=== PATIENT | female | born 1940 | race Caucasian/White ===

== ENCOUNTER → 2017-05-04 | Outpatient (CLI) | payer MEDICARE, OTHER ==
[~2017-05-04] MED LIST: ASCO-96 PO; ASPI-621 PO; BIOT25005 PO; CALC1CAP8 PO; CHOL20002 PO; DEXL60CA2 PO; FLAX100016 PO; FLUT1DIS IH; GARL10002 PO; IPRA4AER INH; LACT1CAP35 PO; LOSA50TA6 PO; MOME13HF2 INH; OMEG1CAP23 PO; POTA10TA11 PO; SIMV20TA3 PO; TRIA1TAB3 PO; VITA400C43 PO
[2017-05-04 13:39] LABS: HEMOGLOBIN 12.2 g/dL (11.7-16.4); WHITE BLOOD COUNT 3.2 x10^3/uL (3.4-10)
== END | disposition home or self-care (01) ==
LOC: CFH 12:00
PROVIDERS: ATTEND Physical Medicine & Rehabilitation
DX: M79.661 Pain in right lower leg (principal); R60.0 Localized edema
CPT/HCPCS: 36415; 85025; 85651; 86140

== ENCOUNTER → 2017-06-08 | Outpatient (CLI) | payer MEDICARE, OTHER ==
[~2017-06-08] MED LIST changes: +APIX5TAB PO; +ASPI-191 PO; +ATOR-2 PO; +CEFD300C37 PO; +FLUT1DIS3 INH; +MELA3TAB2 PO; +METO1TAB18 PO; +METO50TA82 PO; +QUET25TA5 PO; +RIVA20TA PO
[2017-06-08 15:39] LABS: BLOOD UREA NITROGEN 13 mg/dL (7-18)
== END | disposition home or self-care (01) ==
LOC: CFH 13:06
PROVIDERS: ATTEND Internal Medicine Cardiovascular Disease
DX: I10 Essential (primary) hypertension (principal); I48.91 Unspecified atrial fibrillation
CPT/HCPCS: 36415; 80048

== ENCOUNTER 2017-06-22 07:55 | Day surgery (SDC) | payer MEDICARE, OTHER ==
[~2017-06-22] VITALS: Ht 167.6 cm; Wt 77.3 kg
[2017-06-22] MEDS ORDERED: SODIUM CHLORIDE 0.9% 500 ML IV PRN (08:12)
[2017-06-22 08:28] VITALS: BP 113/78
[2017-06-22] MEDS ORDERED: ATOR-2 PO (08:43)
[2017-06-22] MEDS ORDERED: METO50TA82 PO (08:43)
[2017-06-22] MEDS ORDERED: RIVA20TA PO (08:43)
[2017-06-22] MEDS ORDERED: QUET25TA5 PO (08:43)
[2017-06-22] MEDS ORDERED: TRAZ50TA18 PO (08:43)
[2017-06-22] MEDS ORDERED: POTA20TA14 PO (08:44)
[2017-06-22] MEDS ORDERED: PLEASE ENTER HEIGHT AND WEIGHT MC SCH (09:00)
[2017-06-22] MEDS ORDERED: PROPOFOL 10 MG/ML, 20ML ONE (10:42)
== END 2017-06-22 13:10 | disposition home or self-care (01) ==
LOC: CACL 07:55
PROVIDERS: ATTEND Internal Medicine Cardiovascular Disease
DX: I48.91 Unspecified atrial fibrillation (principal); Z79.82 Long term (current) use of aspirin; I10 Essential (primary) hypertension; J45.909 Unspecified asthma, uncomplicated
CPT/HCPCS: 92960; J2704

== ENCOUNTER 2017-10-24 11:03 | Observation (INO) | payer MEDICARE, OTHER ==
[~2017-10-24] VITALS: Ht 167.6 cm; Wt 86.3 kg
[~2017-10-24 11:03] MED LIST changes: +POTA20TA14 PO; +TRAZ50TA18 PO
[2017-10-24 11:49] LABS: BASOPHILS # (AUTO) 0.02 x10^3/uL (0-0.1); BASOPHILS % (AUTO) 0 % (0-1); EOSINOPHILS # (AUTO) 0.07 x10^3/uL (0-0.4); EOSINOPHILS % (AUTO) 1 % (1-7); LYMPHOCYTES # (AUTO) 0.91 x10^3/uL (1-3.4); LYMPHOCYTES % (AUTO) 19 % (22-44); MD NO; MEAN CORPUSCULAR HEMOGLOBIN 30.4 pg (27.0-34.8); MEAN CORPUSCULAR HGB CONC 33.2 g/dL (32.4-35.8); MEAN CORPUSCULAR VOLUME 91.5 fL (80-100); MEAN PLATELET VOLUME 9.8 fL (7.4-10.4); MONOCYTES # (AUTO) 0.53 x10^3/uL (0.2-0.8); MONOCYTES % (AUTO) 11 % (2-9); NEUTROPHILS # (AUTO) 3.36 x10^3/uL (1.8-6.8); NEUTROPHILS % (AUTO) 69 % (42-75); PLATELET COUNT 154 x10^3/uL (130-400); RED BLOOD COUNT 4.57 x10^6/uL (3.82-5.3); RED CELL DISTRIBUTION WIDTH 14.6 % (9.6-15.2)
[2017-10-24 11:55] LABS: INTERNATIONAL NORMALIZED RATIO 1.58 (0.93-1.1); PROTHROMBIN TIME 16.1 Seconds (9.6-11.5)
[2017-10-24 12:01] LABS: ALBUMIN 3.1 g/dL (3.4-5.0); ANION GAP 6 mmol/L (5-15); CALCIUM 8.5 mg/dL (8.5-10.1); CHLORIDE 107 mmol/L (98-107)
[2017-10-24 12:04] LABS: TROPONIN I < 0.015 ng/mL (0.000-0.045)
[2017-10-24] MEDS ORDERED: SODIUM CHLORIDE 0.9%, 500ML IVBOLUS ONE (12:30)
[2017-10-24] MEDS ORDERED: LOSA50TA6 PO (12:34)
[2017-10-24] MEDS ORDERED: MIRT15TA4 PO (12:34)
[2017-10-24] MEDS ORDERED: DEXL60CA2 PO (12:34)
[2017-10-24] MEDS ORDERED: SIMV5TAB5 PO (12:34)
[2017-10-24] MEDS ORDERED: RISP0.2518 PO (12:34)
[2017-10-24] MEDS ORDERED: PREG25CA PO (12:34)
[2017-10-24] MEDS ORDERED: HYDR12.58 PO (12:34)
[2017-10-24] MEDS ORDERED: METO25TA2 PO (12:34)
[2017-10-24] MEDS ORDERED: ACETAMINOPHEN 325 MG TABLET PO PRN (14:00)
[2017-10-24] MEDS ORDERED: ONDANSETRON ODT 4 MG PO PRN (14:00)
[2017-10-24] MEDS ORDERED: DOCUSATE 100 MG CAPSULE PO PRN (14:00)
[2017-10-24] MEDS ORDERED: TRAZODONE 50MG TABLET PO PRN (14:00)
[2017-10-24] MEDS ORDERED: BISACODYL 10 MG SUPP PR PRN (14:00)
[2017-10-24] MEDS ORDERED: HYDROcodone/APAP 5/325 TABLET PO PRN (14:00)
[2017-10-24] MEDS ORDERED: LABETALOL 5MG/ML, 20ML IVPush PRN (14:00)
[2017-10-24] MEDS ORDERED: ENALAPRILAT 1.25 MG/ML, 2ML IVPush PRN (14:00)
[2017-10-24 15:57] VITALS: BP 167/73
[2017-10-24 18:26] LABS: TROPONIN I < 0.015 ng/mL (0.000-0.045)
[2017-10-24 19:02] VITALS: BP 141/75
[2017-10-24] MEDS: POTASSIUM CHLORIDE 20 MEQ TAB.ER.PRT PO SCH (20:10)
[2017-10-24] MEDS: QUETIAPINE 25MG TABLET PO SCH (20:10)
[2017-10-24] MEDS ORDERED: ATORVASTATIN 80 MG TABLET PO SCH (21:00)
[2017-10-24 21:44] LABS: MICROSCOPIC INDICATED
[2017-10-24 21:45] LABS: CULTURE INDICATED? YES
[2017-10-25 02:14] VITALS: BP 143/70
[2017-10-25 05:52] LABS: ANION GAP 8 mmol/L (5-15); CALCIUM 8.8 mg/dL (8.5-10.1); CHLORIDE 109 mmol/L (98-107); CREATININE 0.99 mg/dL (0.55-1.02)
[2017-10-25 07:41] VITALS: BP 140/85
[2017-10-25] MEDS ORDERED: GADOBUTROL 10 MMOL/10 ML VIAL ONE (08:36)
[2017-10-25] MEDS ORDERED: RIVAROXABAN 20 MG TABLET PO SCH (09:00)
[2017-10-25] MEDS ORDERED: HYDROCHLOROTHIAZIDE 12.5 MG CAPSULE PO SCH (09:00)
[2017-10-25] MEDS ORDERED: DEXLANSOPRAZOLE 60 MG PO SCH (09:00)
[2017-10-25] MEDS ORDERED: MIRTAZAPINE 15 MG TABLET PO SCH (09:00)
[2017-10-25] MEDS ORDERED: (Fluticasone/Salmeterol** (Advair 250-50 Diskus**) 1 PUFF) INH SCH (09:00)
[2017-10-25] MEDS ORDERED: RISPERIDONE 0.25 MG PO SCH (09:00)
[2017-10-25] MEDS ORDERED: LOSARTAN 50MG TABLET PO SCH (09:00)
[2017-10-25] MEDS ORDERED: METOPROLOL SUCCINATE 25 MG TAB.ER.24H PO SCH (09:00)
[2017-10-25] MEDS ORDERED: PREGABALIN 25 MG CAPSULE PO SCH (09:00)
[2017-10-25] MEDS: QUETIAPINE 25MG TABLET PO SCH (09:19)
[2017-10-25] MEDS: POTASSIUM CHLORIDE 20 MEQ TAB.ER.PRT PO SCH (09:19)
[2017-10-25 14:05] VITALS: BP 129/82
[2017-10-25] MEDS ORDERED: METO25TA91 PO (17:26)
== END 2017-10-25 20:42 | disposition home or self-care (01) ==
LOC: ED 12:06 → INTOOBSV 12:27 → EDIP 12:27 → 5SO 15:41
PROVIDERS: ADMIT Family Medicine; ATTEND Family Medicine
DX: G45.9 Transient cerebral ischemic attack, unspecified (principal); E86.0 Dehydration; I12.9 Hypertensive chronic kidney disease with stage 1 through stage 4 chronic kidney disease, or unspecified chronic kidney disease; N18.9 Chronic kidney disease, unspecified; E44.0 Moderate protein-calorie malnutrition; J45.909 Unspecified asthma, uncomplicated; I48.92 Unspecified atrial flutter; I48.2 Chronic atrial fibrillation; K21.9 Gastro-esophageal reflux disease without esophagitis; I25.2 Old myocardial infarction; E78.5 Hyperlipidemia, unspecified; I25.10 Atherosclerotic heart disease of native coronary artery without angina pectoris; Z80.3 Family history of malignant neoplasm of breast; Z86.14 Personal history of Methicillin resistant Staphylococcus aureus infection; Z86.73 Personal history of transient ischemic attack (TIA), and cerebral infarction without residual deficits
CPT/HCPCS: 36415; 70450; 70546; 80048; 81001; 82040; 83735; 84134; 84484; 85025; 85610; 87086; 92523; 92610; 93005; 93306; 93880; 96360; 99285; A9585; G0378; G8978; G8979; G8980; J7040

== ENCOUNTER 2018-03-14 10:49 | Inpatient (IN) | payer MEDICARE, OTHER ==
[~2018-03-14] VITALS: Ht 165.1 cm; Wt 89.7 kg
[~2018-03-14 10:49] MED LIST changes: -CHOL20002 PO; +CHOL200052 PO; +HYDR12.58 PO; -LOSA50TA6 PO; +LOSA50TA7 PO; +METO25TA2 PO; +METO25TA91 PO; +MIRT15TA4 PO; +PREG25CA PO; +RISP0.2518 PO; +SIMV5TAB5 PO; +TRAZ-136 PO; -TRAZ50TA18 PO
[2018-03-14] MEDS ORDERED: NALOXONE 1 MG/ML, 2ML ONE (11:15)
[2018-03-14 11:18] LABS: BASOPHILS % (AUTO) 0 % (0-1); EOSINOPHILS # (AUTO) 0.01 x10^3/uL (0-0.4); EOSINOPHILS % (AUTO) 0 % (1-7); LYMPHOCYTES # (AUTO) 0.76 x10^3/uL (1-3.4); LYMPHOCYTES % (AUTO) 7 % (22-44); MD NO; MEAN CORPUSCULAR HEMOGLOBIN 31.1 pg (27.0-34.8); MEAN CORPUSCULAR HGB CONC 33.9 g/dL (32.4-35.8); MEAN CORPUSCULAR VOLUME 91.8 fL (80-100); MONOCYTES # (AUTO) 0.35 x10^3/uL (0.2-0.8); MONOCYTES % (AUTO) 4 % (2-9); NEUTROPHILS # (AUTO) 9.13 x10^3/uL (1.8-6.8); NEUTROPHILS % (AUTO) 89 % (42-75); PLATELET COUNT 219 x10^3/uL (130-400); RED BLOOD COUNT 5.09 x10^6/uL (3.82-5.3); RED CELL DISTRIBUTION WIDTH 16.7 % (9.6-15.2)
[2018-03-14 11:26] LABS: INTERNATIONAL NORMALIZED RATIO 1.23 (0.93-1.1); PROTHROMBIN TIME 12.7 Seconds (9.6-11.5)
[2018-03-14] MEDS ORDERED: OMNIPAQUE 350 MG/ML, 100ML BOTTLE ONE (11:26)
[2018-03-14] MEDS ORDERED: NALOXONE 1 MG/ML, 2ML IVPush ONE (11:30)
[2018-03-14] MEDS ORDERED: CALCIUM GLUCONATE 9.2 MEQ in SODIUM CHLORIDE 0.9% 100 ML IV ONE (11:30)
[2018-03-14] MEDS ORDERED: SODIUM CHLORIDE 0.9%, 500ML IVBOLUS ONE (12:00)
[2018-03-14 12:38] LABS: ALANINE AMINOTRANSFERASE 122 U/L (12-78); ANION GAP 15 mmol/L (5-15); CALCIUM 7.7 mg/dL (8.5-10.1); CHLORIDE 101 mmol/L (98-107); CREATININE 4.09 mg/dL (0.55-1.02)
[2018-03-14 12:39] LABS: ALKALINE PHOSPHATASE 72 U/L (45-117); BILIRUBIN,TOTAL 0.8 mg/dL (0.2-1.0); TOTAL PROTEIN 5.5 g/dL (6.4-8.2)
[2018-03-14] MEDS ORDERED: D5%-0.45% NACL 1,000 ML IV ONE (13:31)
[2018-03-14] MEDS ORDERED: SODIUM CHLORIDE 0.9% 1,000 ML IV SCH (13:37)
[2018-03-14] MEDS: D5%-0.45% NACL 1,000 ML IV SCH ×2 (13:56→20:05)
[2018-03-14] MEDS ORDERED: hydrALAzine 20 MG/ML, 1ML IVPush PRN ×2 (14:00→18:00)
[2018-03-14 14:27] LABS: TROPONIN I 0.203 ng/mL (0.000-0.045)
[2018-03-14 14:33] LABS: MICROSCOPIC INDICATED
[2018-03-14 14:35] VITALS: BP 95/64
[2018-03-14 14:39] LABS: AMPHETAMINE SCREEN, URINE Negative (Negative); BARBITURATE SCREEN, URINE Negative (Negative); BENZODIAZEPINE SCREEN, URINE Negative (Negative); CANNABINOID SCREEN, URINE Negative (Negative); COCAINE SCREEN, URINE Negative (Negative); METHADONE SCREEN, URINE Negative (Negative); OPIATE SCREEN, URINE Negative (Negative)
[2018-03-14] MEDS ORDERED: HEPARIN 5,000 UNITS/ML, 1ML IV ONE ×2 (15:00→19:00)
[2018-03-14 15:09] LABS: SALICYLATE LEVEL < 1.7 mg/dL (2.8-20.0)
[2018-03-14 16:00] VITALS: BP 106/66
[2018-03-14] MEDS: METOPROLOL 1 MG/ML, 5ML IVPush SCH ×2 (16:03→20:39)
[2018-03-14] MEDS ORDERED: CEFTRIAXONE 1,000 MG IM SCH (16:30)
[2018-03-14 17:35] VITALS: BP 99/59
[2018-03-14] MEDS: CEFTRIAXONE 1,000 MG in SODIUM CHLORIDE 0.9% 50 ML IVPB SCH (17:42)
[2018-03-14] MEDS: HEPARIN 25,000 UNITS/500ML PMX 500 ML IV PRN (19:56)
[2018-03-14 20:00] VITALS: BP 94/60
[2018-03-14 23:04] VITALS: BP 119/67
[2018-03-15] VITALS (8 sets, daily range): BP systolic 88–111; BP diastolic 48–71
[2018-03-15 00:36] LABS: TROPONIN I 0.192 ng/mL (0.000-0.045)
[2018-03-15 00:39] LABS: CREATININE,URINE RANDOM 79.1 mg/dL
[2018-03-15] MEDS: D5%-0.45% NACL 1,000 ML IV SCH ×3 (02:03→21:13)
[2018-03-15] MEDS: METOPROLOL 1 MG/ML, 5ML IVPush SCH ×4 (03:00→21:12)
[2018-03-15 06:25] LABS: BASOPHILS # (AUTO) 0.02 x10^3/uL (0-0.1); BASOPHILS % (AUTO) 0 % (0-1); EOSINOPHILS # (AUTO) 0.03 x10^3/uL (0-0.4); EOSINOPHILS % (AUTO) 0 % (1-7); LYMPHOCYTES # (AUTO) 0.76 x10^3/uL (1-3.4); LYMPHOCYTES % (AUTO) 8 % (22-44); MD NO; MEAN CORPUSCULAR HEMOGLOBIN 31.5 pg (27.0-34.8); MEAN CORPUSCULAR HGB CONC 33.8 g/dL (32.4-35.8); MEAN CORPUSCULAR VOLUME 93.2 fL (80-100); MEAN PLATELET VOLUME 9.8 fL (7.4-10.4); MONOCYTES % (AUTO) 8 % (2-9); NEUTROPHILS # (AUTO) 8.17 x10^3/uL (1.8-6.8); NEUTROPHILS % (AUTO) 84 % (42-75); PLATELET COUNT 165 x10^3/uL (130-400); RED BLOOD COUNT 4.41 x10^6/uL (3.82-5.3); RED CELL DISTRIBUTION WIDTH 16.6 % (9.6-15.2)
[2018-03-15 06:38] LABS: ALANINE AMINOTRANSFERASE 136 U/L (12-78); ALBUMIN 1.9 g/dL (3.4-5.0); ANION GAP 15 mmol/L (5-15); CALCIUM 8.1 mg/dL (8.5-10.1); CHLORIDE 104 mmol/L (98-107); CREATININE 2.84 mg/dL (0.55-1.02)
[2018-03-15 06:40] LABS: ALKALINE PHOSPHATASE 76 U/L (45-117); BILIRUBIN,TOTAL 0.6 mg/dL (0.2-1.0); TOTAL PROTEIN 5.8 g/dL (6.4-8.2)
[2018-03-15] MEDS ORDERED: POTASSIUM CHLORIDE 40 MEQ in SODIUM CHLORIDE 0.9% 500 ML IV ONE (13:30)
[2018-03-15] MEDS: CEFTRIAXONE 1,000 MG in SODIUM CHLORIDE 0.9% 50 ML IVPB SCH (17:29)
[2018-03-16] VITALS (8 sets, daily range): BP systolic 93–140; BP diastolic 57–82
[2018-03-16] MEDS: HEPARIN 25,000 UNITS/500ML PMX 500 ML IV PRN (00:40)
[2018-03-16] MEDS: D5%-0.45% NACL 1,000 ML IV SCH (04:15)
[2018-03-16] MEDS: METOPROLOL 1 MG/ML, 5ML IVPush SCH ×4 (04:15→22:09)
[2018-03-16] MEDS: HEPARIN 5,000 UNITS/ML, 1ML IV PRN ×2 (06:35→22:54)
[2018-03-16 07:07] LABS: ALANINE AMINOTRANSFERASE 99 U/L (12-78); ALBUMIN 1.6 g/dL (3.4-5.0); ANION GAP 9 mmol/L (5-15); CALCIUM 7.5 mg/dL (8.5-10.1); CHLORIDE 107 mmol/L (98-107); CREATININE 1.38 mg/dL (0.55-1.02)
[2018-03-16 07:17] LABS: ALKALINE PHOSPHATASE 80 U/L (45-117); BILIRUBIN,TOTAL 0.3 mg/dL (0.2-1.0); TOTAL PROTEIN 5.1 g/dL (6.4-8.2)
[2018-03-16] MEDS ORDERED: POTASSIUM CHLORIDE 40 MEQ in SODIUM CHLORIDE 0.9% 500 ML IV ONE (08:00)
[2018-03-16 12:47] LABS: INTERNATIONAL NORMALIZED RATIO 1.22 (0.93-1.1); PROTHROMBIN TIME 12.6 Seconds (9.6-11.5)
[2018-03-16 12:48] LABS: BILIRUBIN, DIRECT 0.2 mg/dL (0.1-0.2); BILIRUBIN,INDIRECT 0.3 mg/dL (0.0-2.0); BILIRUBIN,TOTAL 0.5 mg/dL (0.2-1.0)
[2018-03-16] MEDS: CEFTRIAXONE 1,000 MG in SODIUM CHLORIDE 0.9% 50 ML IVPB SCH (17:49)
[2018-03-16] MEDS: POTASSIUM CHLORIDE 40 MEQ in SODIUM CHLORIDE 0.45% 1,000 ML IV SCH (17:50)
[2018-03-16 20:00] LABS: ANION GAP 10 mmol/L (5-15); CALCIUM 7.7 mg/dL (8.5-10.1); CHLORIDE 112 mmol/L (98-107); CREATININE 1.06 mg/dL (0.55-1.02)
[2018-03-17 01:58] VITALS: BP 106/67
[2018-03-17 03:40] VITALS: BP 129/80
[2018-03-17] MEDS: METOPROLOL 1 MG/ML, 5ML IVPush SCH ×4 (03:42→23:42)
[2018-03-17 05:29] LABS: ALBUMIN 1.5 g/dL (3.4-5.0); ANION GAP 6 mmol/L (5-15); CALCIUM 7.8 mg/dL (8.5-10.1); CHLORIDE 111 mmol/L (98-107)
[2018-03-17 05:32] LABS: ALANINE AMINOTRANSFERASE 138 U/L (12-78); ALKALINE PHOSPHATASE 77 U/L (45-117); BILIRUBIN,TOTAL 0.4 mg/dL (0.2-1.0); CREATININE 0.96 mg/dL (0.55-1.02)
[2018-03-17 05:35] LABS: BASOPHILS # (AUTO) 0.03 x10^3/uL (0-0.1); BASOPHILS % (AUTO) 1 % (0-1); EOSINOPHILS # (AUTO) 0.05 x10^3/uL (0-0.4); EOSINOPHILS % (AUTO) 1 % (1-7); LYMPHOCYTES # (AUTO) 0.69 x10^3/uL (1-3.4); LYMPHOCYTES % (AUTO) 13 % (22-44); MD NO; MEAN CORPUSCULAR HEMOGLOBIN 30.1 pg (27.0-34.8); MEAN CORPUSCULAR HGB CONC 33.1 g/dL (32.4-35.8); MEAN CORPUSCULAR VOLUME 90.8 fL (80-100); MEAN PLATELET VOLUME 9.6 fL (7.4-10.4); MONOCYTES # (AUTO) 0.38 x10^3/uL (0.2-0.8); MONOCYTES % (AUTO) 7 % (2-9); NEUTROPHILS # (AUTO) 4.21 x10^3/uL (1.8-6.8); NEUTROPHILS % (AUTO) 79 % (42-75); PLATELET COUNT 161 x10^3/uL (130-400); RED BLOOD COUNT 3.77 x10^6/uL (3.82-5.3)
[2018-03-17 09:01] VITALS: BP 128/76
[2018-03-17] MEDS: POTASSIUM CHLORIDE 40 MEQ in SODIUM CHLORIDE 0.45% 1,000 ML IV SCH ×2 (09:16→23:43)
[2018-03-17] MEDS: HEPARIN 25,000 UNITS/500ML PMX 500 ML IV PRN (09:56)
[2018-03-17 09:59] VITALS: BP 112/73
[2018-03-17 13:20] VITALS: BP 119/75
[2018-03-17] MEDS: CEFTRIAXONE 1,000 MG in SODIUM CHLORIDE 0.9% 50 ML IVPB SCH (17:41)
[2018-03-17 20:00] VITALS: BP 105/71
[2018-03-18 00:41] VITALS: BP 112/74
[2018-03-18] MEDS: METOPROLOL 1 MG/ML, 5ML IVPush SCH ×2 (05:00→10:28)
[2018-03-18 07:07] VITALS: BP 120/77
[2018-03-18 10:26] VITALS: BP 137/84
== END 2018-03-18 16:12 | disposition hospice, home (50) | DRG 64 ==
LOC: ED 12:00 → EDIP 12:05 → ED 12:13 → 5SO 14:27
PROVIDERS: ADMIT Family Medicine; ATTEND Family Medicine
PROC: 0T9B70Z Drainage of Bladder with Drainage Device, Via Natural or Artificial Opening (ICD-10-PCS; principal; 2018-03-14)
DX: I63.40 Cerebral infarction due to embolism of unspecified cerebral artery (principal); G93.41 Metabolic encephalopathy; N17.9 Acute kidney failure, unspecified; N39.0 Urinary tract infection, site not specified; D68.69 Other thrombophilia; F01.50 Vascular dementia, unspecified severity, without behavioral disturbance, psychotic disturbance, mood disturbance, and anxiety; I48.0 Paroxysmal atrial fibrillation; Z66 Do not resuscitate; I10 Essential (primary) hypertension; E04.2 Nontoxic multinodular goiter; E83.51 Hypocalcemia; G47.00 Insomnia, unspecified; E78.5 Hyperlipidemia, unspecified; L89.90 Pressure ulcer of unspecified site, unspecified stage; D63.8 Anemia in other chronic diseases classified elsewhere; K80.70 Calculus of gallbladder and bile duct without cholecystitis without obstruction; Z51.5 Encounter for palliative care; E86.0 Dehydration; E87.6 Hypokalemia; R13.10 Dysphagia, unspecified; R74.0 Nonspecific elevation of levels of transaminase and lactic acid dehydrogenase [LDH]; Z79.01 Long term (current) use of anticoagulants; Z82.49 Family history of ischemic heart disease and other diseases of the circulatory system; Z80.3 Family history of malignant neoplasm of breast; Z86.73 Personal history of transient ischemic attack (TIA), and cerebral infarction without residual deficits; Z86.14 Personal history of Methicillin resistant Staphylococcus aureus infection; Z79.899 Other long term (current) drug therapy
CPT/HCPCS: 36415; 36600; 70450; 70496; 70498; 70551; 74018; 76705; 76770; 80047; 80048; 80053; 80307; 80329; 81001; 82140; 82247; 82248; 82436; 82570; 82803; 82962; 83615; 83735; 84100; 84133; 84300; 84443; 84484; 85025; 85520; 85610; 85730; 93005; 95819; 96365; 96375; 99291; G0378; J0610; J0696; J1644; J3480; Q9967; G0480; J2310; J7030; J7040